=== PATIENT | female | born 1950 | race Caucasian/White ===

== ENCOUNTER → 2018-03-02 | Outpatient (CLI) | payer MEDICARE | LOC: M WUC 11:00 | DX: M25.561 Pain in right knee (principal) | CPT/HCPCS: 73564 ==

== ENCOUNTER → 2018-04-29 | Outpatient (CLI) | payer MEDICARE | LOC: M WHC 09:51 | DX: Z12.31 Encounter for screening mammogram for malignant neoplasm of breast (principal) | CPT/HCPCS: 77067 ==

== ENCOUNTER → 2019-12-11 | Outpatient (REF) | payer MEDICARE ==
[2019-12-11 13:02] LABS: HEMATOCRIT 45.3 % (36.0-47.0); HEMOGLOBIN 14.9 g/dl (12.0-15.5); MEAN CORPUSCULAR HEMOGLOBIN 32.3 pg (27.0-33.0); MEAN CORPUSCULAR HGB CONC 32.9 g/dl (32.0-36.5); MEAN CORPUSCULAR VOLUME 98.1 fl (80.0-96.0); PLATELET COUNT, AUTOMATED 146 10^3/uL (150-450); RED BLOOD COUNT 4.62 10^6/uL (4.00-5.40); WHITE BLOOD COUNT 8.1 10^3/uL (4.0-10.0)
[2019-12-11 13:35] LABS: ALBUMIN 3.6 GM/DL (3.2-5.2); ALT/SGPT 33 U/L (12-78); BILIRUBIN,TOTAL 0.9 MG/DL (0.2-1.0); BLOOD UREA NITROGEN 21 MG/DL (7-18); CALCIUM LEVEL 9.8 MG/DL (8.8-10.2); CARBON DIOXIDE LEVEL 28 MEQ/L (21-32); CHLORIDE LEVEL 103 MEQ/L (98-107); CHOLESTEROL LEVEL 192 MG/DL (<200); CREATININE FOR GFR 0.84 MG/DL (0.55-1.30); FREE T4 1.15 NG/DL (0.76-1.46); GLOMERULAR FILTRATION RATE > 60.0 (>39); GLUCOSE, FASTING 92 MG/DL (70-100); HDL CHOLESTEROL 64 MG/DL (>40); LDL CHOLESTEROL 108 MG/DL (<100); NON-HDL-C 128 MG/DL; POTASSIUM SERUM 4.3 MEQ/L (3.5-5.1); SODIUM LEVEL 138 MEQ/L (136-145); TOTAL PROTEIN 7.3 GM/DL (6.4-8.2); TRIGLYCERIDES LEVEL 102 MG/DL (<150)
[2019-12-11 14:40] LABS: HEMOGLOBIN A1c 5.6 %
== END ==
LOC: M SFHCADAM 11:16
PROVIDERS: ATTEND Family Medicine
DX: I10 Essential (primary) hypertension (principal); R73.09 Other abnormal glucose; J44.9 Chronic obstructive pulmonary disease, unspecified; E78.5 Hyperlipidemia, unspecified

== ENCOUNTER → 2020-12-13 | Outpatient (REF) | payer MEDICARE ==
[2020-12-13 13:07] LABS: ALBUMIN 3.4 GM/DL (3.2-5.2); ALT/SGPT 23 U/L (12-78); BLOOD UREA NITROGEN 18 MG/DL (7-18); CALCIUM LEVEL 8.9 MG/DL (8.8-10.2); CARBON DIOXIDE LEVEL 28 MEQ/L (21-32); CHLORIDE LEVEL 102 MEQ/L (98-107); CHOLESTEROL LEVEL 185 MG/DL (<200); CHOLESTEROL RISK RATIO 3.135 (<5); CREATININE FOR GFR 0.76 MG/DL (0.55-1.30); FREE T4 1.09 NG/DL (0.76-1.46); GLOMERULAR FILTRATION RATE > 60.0 (>39); GLUCOSE, FASTING 101 MG/DL (70-100); HDL CHOLESTEROL 59 MG/DL (>40); LDL CHOLESTEROL 104 MG/DL (<100); NON-HDL-C 126 MG/DL; POTASSIUM SERUM 4.3 MEQ/L (3.5-5.1); SODIUM LEVEL 137 MEQ/L (136-145); TRIGLYCERIDES LEVEL 112 MG/DL (<150)
[2020-12-13 13:43] LABS: HEMOGLOBIN A1c 5.1 %
== END ==
LOC: M SFHCADAM 08:36
PROVIDERS: ATTEND Family Medicine
DX: E04.9 Nontoxic goiter, unspecified (principal); I10 Essential (primary) hypertension; R73.09 Other abnormal glucose; E78.5 Hyperlipidemia, unspecified

== ENCOUNTER → 2021-09-20 | Outpatient (CLI) | payer MEDICARE | LOC: M WHC 09:18 | PROVIDERS: ATTEND Family Medicine | DX: Z12.31 Encounter for screening mammogram for malignant neoplasm of breast (principal); Z13.820 Encounter for screening for osteoporosis; M81.0 Age-related osteoporosis without current pathological fracture ==

== ENCOUNTER → 2022-12-20 | Outpatient (REF) | payer MEDICARE ==
[2022-12-20 13:34] LABS: ALBUMIN 3.1 G/DL (3.2-5.2); BILIRUBIN,TOTAL 1.5 MG/DL (0.3-1.2); CALCIUM LEVEL 9.4 MG/DL (8.3-10.6); CHOLESTEROL RISK RATIO 2.81 (<5); CREATININE FOR GFR 1.03 MG/DL (0.55-1.30); FREE T4 1.18 NG/DL (0.89-1.76); GLOMERULAR FILTRATION RATE 55.9 (>39); HDL CHOLESTEROL 63.3 MG/DL (>40); LDL CHOLESTEROL 88.3 MG/DL (<100); NON-HDL-C 114.7 MG/DL; POTASSIUM SERUM 4.2 MMOL/L (3.5-5.1); TOTAL PROTEIN 6.2 G/DL (5.7-8.2)
[2022-12-20 13:35] LABS: THYROID STIMULATING HORMONE 1.739 uIU/ML (0.55-4.78)
[2022-12-20 13:44] LABS: HEMATOCRIT 49.2 % (36.0-47.0); HEMOGLOBIN 16.3 g/dl (12.0-15.5); MEAN CORPUSCULAR HEMOGLOBIN 32.3 pg (27.0-33.0); MEAN CORPUSCULAR HGB CONC 33.1 g/dl (32.0-36.5); MEAN CORPUSCULAR VOLUME 97.6 fl (80.0-96.0); PLATELET COUNT, AUTOMATED 130 10^3/uL (150-450); RED BLOOD COUNT 5.04 10^6/uL (4.00-5.40); WHITE BLOOD COUNT 11.8 10^3/uL (4.0-10.0)
[2022-12-20 13:54] LABS: HEMOGLOBIN A1c 5.6 % (4.0-6.0)
== END ==
LOC: M SFHCADAM 10:05
PROVIDERS: ATTEND Family Medicine
DX: M85.80 Other specified disorders of bone density and structure, unspecified site (principal); R73.09 Other abnormal glucose; E78.5 Hyperlipidemia, unspecified; E04.9 Nontoxic goiter, unspecified; J44.9 Chronic obstructive pulmonary disease, unspecified

== ENCOUNTER → 2023-06-01 | Outpatient (REF) | payer MEDICARE ==
[2023-06-01 12:58] LABS: HEMATOCRIT 45.3 % (36.0-47.0); MEAN CORPUSCULAR HEMOGLOBIN 32.7 pg (27.0-33.0); MEAN CORPUSCULAR HGB CONC 33.1 g/dl (32.0-36.5); MEAN CORPUSCULAR VOLUME 98.7 fl (80.0-96.0); PLATELET COUNT, AUTOMATED 116 10^3/uL (150-450); RED BLOOD COUNT 4.59 10^6/uL (4.00-5.40)
[2023-06-01 13:33] LABS: ALBUMIN 3.4 G/DL (3.2-5.2); BILIRUBIN,TOTAL 0.9 MG/DL (0.3-1.2); CALCIUM LEVEL 10.1 MG/DL (8.3-10.6); GLOMERULAR FILTRATION RATE 57.7 (>39); POTASSIUM SERUM 4.2 MMOL/L (3.5-5.1)
== END ==
LOC: M SFHCADAM 10:50
PROVIDERS: ATTEND Family Medicine
DX: I10 Essential (primary) hypertension (principal); D72.828 Other elevated white blood cell count

== ENCOUNTER → 2023-11-28 | Outpatient (REF) | payer MEDICARE ==
[2023-11-28 18:14] LABS: BASO # 0.1 10^3/uL (0.0-0.2); BASO % 0.7 % (0.0-1.0); EOS # 0.4 10^3/uL (0.0-0.5); EOS % 5.4 % (0.0-3.0); HEMATOCRIT 44.8 % (36.0-47.0); HEMOGLOBIN 14.6 g/dl (12.0-15.5); LYMPH # 1.2 10^3/uL (1.5-5.0); LYMPH % 17.3 % (24.0-44.0); MEAN CORPUSCULAR HEMOGLOBIN 33.3 pg (27.0-33.0); MEAN CORPUSCULAR HGB CONC 32.6 g/dl (32.0-36.5); MEAN CORPUSCULAR VOLUME 102.3 fl (80.0-96.0); MONO # 1.3 10^3/uL (0.0-0.8); MONO % 19.3 % (2.0-8.0); NEUTROPHILS # 3.9 10^3/uL (1.5-8.5); NEUTROPHILS % 56.9 % (36.0-66.0); RED BLOOD COUNT 4.38 10^6/uL (4.00-5.40); WHITE BLOOD COUNT 6.8 10^3/uL (4.0-10.0)
[2023-11-28 18:16] LABS: THYROID STIMULATING HORMONE 1.696 uIU/ML (0.55-4.78)
[2023-11-28 18:17] LABS: BILIRUBIN,TOTAL 1.2 MG/DL (0.3-1.2); CALCIUM LEVEL 10.1 MG/DL (8.3-10.6); CHOLESTEROL RISK RATIO 2.94 (<5); CREATININE FOR GFR 0.98 MG/DL (0.55-1.30); GLOMERULAR FILTRATION RATE 59.1 (>39); HDL CHOLESTEROL 64.9 MG/DL (>40); LDL CHOLESTEROL 101.3 MG/DL (<100); NON-HDL-C 126.1 MG/DL; POTASSIUM SERUM 4.3 MMOL/L (3.5-5.1); TOTAL PROTEIN 6.3 G/DL (5.7-8.2)
[2023-11-28 18:19] LABS: FREE T4 1.18 NG/DL (0.89-1.76)
[2023-11-28 18:57] LABS: PLATELET COUNT, AUTOMATED 97 10^3/uL (150-450)
== END ==
LOC: M SFHCADAM 10:54
PROVIDERS: ATTEND Family Medicine
DX: I10 Essential (primary) hypertension (principal); D72.828 Other elevated white blood cell count; E04.9 Nontoxic goiter, unspecified; E78.5 Hyperlipidemia, unspecified; R73.09 Other abnormal glucose

== ENCOUNTER → 2024-12-10 | Outpatient (REF) | payer MEDICARE ==
[2024-12-10 16:57] LABS: HEMATOCRIT 39.4 % (36.0-47.0); HEMOGLOBIN 13.4 g/dl (12.0-15.5); MEAN CORPUSCULAR HEMOGLOBIN 33.9 pg (27.0-33.0); MEAN CORPUSCULAR VOLUME 99.7 fl (80.0-96.0); PLATELET COUNT, AUTOMATED 118 10^3/uL (150-450); RED BLOOD COUNT 3.95 10^6/uL (4.00-5.40)
[2024-12-10 17:00] LABS: INR 1.13; PROTHROMBIN TIME 14.8 SECONDS (12.5-14.5)
[2024-12-10 17:03] LABS: ALBUMIN 3.2 G/DL (3.2-5.2); ALKALINE PHOSPHATASE 96 U/L (35-104); ALT/SGPT 21 U/L (7.0-40); AST/SGOT 36 U/L (<34); BILIRUBIN,TOTAL 1.3 MG/DL (0.3-1.2); BLOOD UREA NITROGEN 14 MG/DL (9-23); CALCIUM LEVEL 9.8 MG/DL (8.3-10.6); CARBON DIOXIDE LEVEL 26 MMOL/L (20-31); CHLORIDE LEVEL 95 MMOL/L (98-107); CHOLESTEROL LEVEL 158 MG/DL (<200); CHOLESTEROL RISK RATIO 2.96 (<5); CREATININE FOR GFR 0.91 MG/DL (0.55-1.30); GLOMERULAR FILTRATION RATE 65.8 (>39); GLUCOSE, FASTING 98 MG/DL (74-106); HDL CHOLESTEROL 53.2 MG/DL (>40); NON-HDL-C 104.8 MG/DL; POTASSIUM SERUM 4.3 MMOL/L (3.5-5.1); SODIUM LEVEL 129 MMOL/L (136-145); TOTAL PROTEIN 6.5 G/DL (5.7-8.2); TRIGLYCERIDES LEVEL 89 MG/DL (<150)
[2024-12-10 17:04] LABS: FREE T4 1.27 NG/DL (0.89-1.76)
[2024-12-10 17:05] LABS: FERRITIN 88.6 NG/ML (7.3-270.7); THYROID STIMULATING HORMONE 2.913 uIU/ML (0.55-4.78)
[2024-12-10 17:23] LABS: HEPATITIS B SURFACE ANTIGEN NEGATIVE (NEGATIVE)
[2024-12-10 17:43] LABS: HEPATITIS C VIRUS ABY INDEX 0.34 INDEX (<0.8)
[2024-12-10 17:44] LABS: HEPATITIS B CORE ANTIBODY IGM NEGATIVE (NEGATIVE)
[2024-12-15 10:37] LABS: ALPHA 1 ANTITRYPSIN 219 mg/dL (83-199)
[2024-12-15 16:03] LABS: LIVER-KIDNEY MICROSOMAL ABY <= 20.0 U (<=20.0)
[2024-12-15 16:11] LABS: ANA PATTERN Nuclear, Speckled (NEGATIVE); ANA SCREEN, IFA POSITIVE (NEGATIVE)
== END ==
LOC: M SFHCADAM 10:54
PROVIDERS: ATTEND Family Medicine
DX: J44.1 Chronic obstructive pulmonary disease with (acute) exacerbation (principal); E04.9 Nontoxic goiter, unspecified; E78.5 Hyperlipidemia, unspecified; R73.09 Other abnormal glucose; K74.00 Hepatic fibrosis, unspecified

== ENCOUNTER 2025-03-06 14:16 | Inpatient (IN) | payer MEDICARE ==
[~2025-03-06] VITALS: Ht 167.6 cm; Wt 81.0 kg
[2025-03-06 15:00] LABS: BASO # 0.1 10^3/uL (0.0-0.2); BASO % 0.9 % (0.0-1.0); EOS # 0.4 10^3/uL (0.0-0.5); EOS % 5.9 % (0.0-3.0); LYMPH # 0.8 10^3/uL (1.5-5.0); LYMPH % 11.0 % (24.0-44.0); MONO # 0.9 10^3/uL (0.0-0.8); MONO % 13.2 % (2.0-8.0); NEUTROPHILS # 4.7 10^3/uL (1.5-8.5); NEUTROPHILS % 68.6 % (36.0-66.0); PLATELET COUNT, AUTOMATED 141 10^3/uL (150-450)
[2025-03-06 15:27] LABS: ALT/SGPT 20.0 U/L (7.0-40); AST/SGOT 36.0 U/L (<34); CALCIUM LEVEL 9.5 MG/DL (8.3-10.6); CARBON DIOXIDE LEVEL 27.0 MMOL/L (20-31); CHLORIDE LEVEL 96.0 MMOL/L (98-107); CREATININE FOR GFR 1.09 MG/DL (0.55-1.30); GLOMERULAR FILTRATION RATE 53.0 (>39); POTASSIUM SERUM 4.7 MMOL/L (3.5-5.1); SODIUM LEVEL 130.0 MMOL/L (136-145)
[2025-03-06] MEDS ORDERED: ISOVUE-370 76% 100 ML VIAL As Ordered ONE (17:43)
[2025-03-06] MEDS ORDERED: IBAN150T10 PO (18:06)
[2025-03-06] MEDS ORDERED: FLUT1BLS5 INH (18:06)
[2025-03-06] MEDS ORDERED: FLUTISP (18:12)
[2025-03-06] MEDS ORDERED: METO200T15 PO (18:12)
[2025-03-06] MEDS ORDERED: HYDR-3490 PO (18:12)
[2025-03-06] MEDS ORDERED: METF850T4 PO (18:12)
[2025-03-06] MEDS ORDERED: POTA1TAB23 PO (18:12)
[2025-03-06] MEDS ORDERED: IRBE300T25 PO (18:12)
[2025-03-06] MEDS ORDERED: ALBU8.5H INH (18:12)
[2025-03-06] MEDS ORDERED: CALC500T25 PO (18:13)
[2025-03-06] MEDS ORDERED: ECOT81TA5 PO (18:13)
[2025-03-06] MEDS ORDERED: HOME MED LIST COMPLETE! XX SCH (18:15)
[2025-03-06 18:34] LABS: APPEARANCE, URINE CLEAR (CLEAR); BACTERIA, URINE AUTO NEGATIVE (NEGATIVE); BILIRUBIN, URINE AUTO NEGATIVE (NEGATIVE); BLOOD, URINE BLOOD 1+ (NEGATIVE); GLUCOSE, URINE (UA) AUTO NEGATIVE (NEGATIVE); KETONE, URINE AUTO NEGATIVE (NEGATIVE); LEUKOCYTE ESTERASE, URINE AUTO NEGATIVE (NEGATIVE); MUCUS, URINE SMALL (NEGATIVE); NITRITE, URINE AUTO NEGATIVE (NEGATIVE); PROTEIN, URINE AUTO NEGATIVE (NEGATIVE); RBC, URINE AUTO 1 /HPF (0-3); SPECIFIC GRAVITY URINE AUTO 1.011 (1.002-1.035); SQUAMOUS EPITHELIAL CELL UR AU 2 /HPF (0-6); UROBILINOGEN, URINE AUTO 0.2 mg/dL (0.0-2.0); WBC, URINE AUTO 1 /HPF (0-3)
[2025-03-06 18:40] LABS: INR 1.22
[2025-03-06] MEDS: FUROSEMIDE 40 MG/4 ML VIAL IV ONE (18:51)
[2025-03-06] MEDS: ALBUTEROL SULFATE 2.5 MG/0.5 ML INH CONCENTRATE NEB SOLN NEB ONE (19:27)
[2025-03-06] MEDS ORDERED: DEXTROSE 50% 50 ML SYRINGE IV PRN (23:15)
[2025-03-06] MEDS ORDERED: MAALOX 30 ML SUSP *UDC PO PRN (23:15)
[2025-03-06] MEDS ORDERED: GLUCOSE 4 GM CHEW PO PRN (23:15)
[2025-03-06] MEDS ORDERED: GLUCAGON INJ 1 MG VIAL SC PRN (23:15)
[2025-03-06] MEDS ORDERED: MOM 30 ML SUSPENSION UDC PO PRN (23:15)
[2025-03-06] MEDS ORDERED: guaiFENesin SYRUP 200 MG/10 ML UDC PO PRN (23:40)
[2025-03-06] MEDS: METOPROLOL SUCC. 100 MG *XL* TAB PO SCH (23:55)
[2025-03-06] MEDS: IRBESARTAN 150 MG TAB PO SCH (23:55)
[2025-03-07 00:50] VITALS: BP 111/55; TEMP 97.3; O2SAT 93
[2025-03-07] MEDS: LEVALBUTEROL 1.25 MG 0.5ML CONCENTRATE NEB NEB SCH (01:06)
[2025-03-07 02:14] VITALS: O2SAT 95
[2025-03-07 03:23] VITALS: BP 110/55; TEMP 97.5; O2SAT 93
[2025-03-07 06:03] LABS: PLATELET COUNT, AUTOMATED 106 10^3/uL (150-450)
[2025-03-07 06:19] LABS: INR 1.37
[2025-03-07 06:37] LABS: LDH LACTATE DEHYDROGENASE 101 U/L (120-246)
[2025-03-07 07:06] LABS: ALT/SGPT 18 U/L (7.0-40); AST/SGOT 30 U/L (<34); CA 125 420.0 U/ML (<35); CA19-9 TUMOR MARKER,CARBOHYDRA < 1.2 U/ML (<35.0); CALCIUM LEVEL 8.7 MG/DL (8.3-10.6); CARBON DIOXIDE LEVEL 26 MMOL/L (20-31); CHLORIDE LEVEL 97 MMOL/L (98-107); CREATININE FOR GFR 1.04 MG/DL (0.55-1.30); GLOMERULAR FILTRATION RATE 56.1 (>39); MAGNESIUM LEVEL 1.4 MG/DL (1.8-2.4); POTASSIUM SERUM 4.0 MMOL/L (3.5-5.1); SODIUM LEVEL 130 MMOL/L (136-145)
[2025-03-07] MEDS: INSULIN LISPRO (NovoLOG) PER UNIT SC SCH (07:30)
[2025-03-07] MEDS: DOCUSATE SODIUM 100 MG CAPSULE PO SCH (08:02)
[2025-03-07] MEDS: ASPIRIN 81 MG ENTERIC TABLET PO SCH (08:03)
[2025-03-07] MEDS: SPIRONOLACTONE 50 MG TAB PO SCH (08:06)
[2025-03-07] MEDS: FUROSEMIDE 40 MG/4 ML VIAL IV SCH ×2 (08:08→17:33)
[2025-03-07] MEDS: HEPARIN SOD 5000 UNITS/ML 1 ML VIAL/SYRINGE SC SCH (08:09)
[2025-03-07] MEDS: FLUTICASONE PROPIONATE 0.05% NASAL SPRAY 16 GM SCH (08:09)
[2025-03-07 08:24] LABS: OSMOLALITY SERUM 267 MOSM/KG (280-301)
[2025-03-07] MEDS: MAG SULF 1GM/100ML (MAG RUN) 1 GM in IV 1 EA IV SCH (08:24)
[2025-03-07] MEDS: MAGNESIUM OXIDE 400 MG TAB PO SCH (08:24)
[2025-03-07] MEDS ORDERED: POTASSIUM CHLORIDE 10MEQ SR TABLET PO SCH (09:00)
[2025-03-07] MEDS: NICOTINE 21 MG/24 HR 1 EA TRANSDERMAL TD SCH (11:47)
[2025-03-07 12:29] LABS: SODIUM,RANDOM URINE 77 MMOL/L
[2025-03-07 12:32] VITALS: BP 108/45; TEMP 97; O2SAT 98
[2025-03-07 15:42] VITALS: O2SAT 96
[2025-03-07 18:56] LABS: CHOLESTEROL LEVEL 125.0 MG/DL (<200); CHOLESTEROL RISK RATIO 3.73 (<5); LDL CHOLESTEROL 75.1 MG/DL (<100); NON-HDL-C 91.5 MG/DL; TRIGLYCERIDES LEVEL 82.0 MG/DL (<150)
[2025-03-07] MEDS: ADVAIR HFA 115/21 MCG INHALER INH SCH (19:32)
[2025-03-07 19:57] VITALS: BP 109/45; TEMP 97.7; O2SAT 99
[2025-03-07] MEDS: METOPROLOL SUCC. 100 MG *XL* TAB PO SCH (20:59)
[2025-03-08] MEDS: ACETAMINOPHEN 325 MG TAB PO PRN (01:50)
[2025-03-08 05:36] VITALS: BP 113/60; TEMP 97.7; O2SAT 90
[2025-03-08 06:52] LABS: PLATELET COUNT, AUTOMATED 127 10^3/uL (150-450)
[2025-03-08 07:00] LABS: INR 1.3
[2025-03-08 07:25] LABS: ALT/SGPT 19.0 U/L (7.0-40); AST/SGOT 33.0 U/L (<34); CALCIUM LEVEL 8.9 MG/DL (8.3-10.6); CARBON DIOXIDE LEVEL 25.0 MMOL/L (20-31); CHLORIDE LEVEL 95.0 MMOL/L (98-107); CREATININE FOR GFR 1.12 MG/DL (0.55-1.30); GLOMERULAR FILTRATION RATE 51.3 (>39); MAGNESIUM LEVEL 1.7 MG/DL (1.8-2.4); POTASSIUM SERUM 4.2 MMOL/L (3.5-5.1); SODIUM LEVEL 129.0 MMOL/L (136-145)
[2025-03-08 11:45] VITALS: BP 105/50; TEMP 97.3; O2SAT 97
[2025-03-08] MEDS: FUROSEMIDE 40 MG/4 ML VIAL IV SCH (16:40)
[2025-03-08] MEDS: MAG SULF 1GM/100ML (MAG RUN) 1 GM in IV 1 EA IV SCH (18:29)
[2025-03-08 18:45] VITALS: O2SAT 99
[2025-03-08 20:27] VITALS: BP 100/49; TEMP 97.5; O2SAT 96
[2025-03-08 23:16] VITALS: BP 103/47; TEMP 97.6; O2SAT 97
[2025-03-08 23:19] VITALS: BP 100/55
[2025-03-09] VITALS (9 sets, daily range): BP systolic 92–125; BP diastolic 48–64; TEMP 97.3–97.5; O2SAT 92–97
[2025-03-09 07:13] LABS: PLATELET COUNT, AUTOMATED 108 10^3/uL (150-450)
[2025-03-09 07:33] LABS: INR 1.24
[2025-03-09 08:03] LABS: ALT/SGPT 19.0 U/L (7.0-40); AST/SGOT 38.0 U/L (<34); CALCIUM LEVEL 8.7 MG/DL (8.3-10.6); CARBON DIOXIDE LEVEL 22.0 MMOL/L (20-31); CHLORIDE LEVEL 94.0 MMOL/L (98-107); CREATININE FOR GFR 1.01 MG/DL (0.55-1.30); GLOMERULAR FILTRATION RATE 58.1 (>39); MAGNESIUM LEVEL 2.0 MG/DL (1.8-2.4); POTASSIUM SERUM 4.1 MMOL/L (3.5-5.1); SODIUM LEVEL 129.0 MMOL/L (136-145)
[2025-03-09] MEDS: MIDODRINE 5 MG TAB PO SCH (12:05)
[2025-03-09 13:04] LABS: SOURCE, BODY FLUID ASCITES
[2025-03-09 13:05] LABS: APPEARANCE, BODY FLUID CLEAR (CLEAR); ASCITES FL COLOR YELLOW (COLORLESS)
[2025-03-09 13:17] LABS: SOURCE, BODY FLUID GLUCOSE ASCITES
[2025-03-09 13:18] LABS: SOURCE, BODY FLUID TOT PROTEIN ASCITES
[2025-03-10] VITALS (12 sets, daily range): BP systolic 90–118; BP diastolic 46–58; TEMP 97.2–98.6; O2SAT 95–98
[2025-03-10 06:27] LABS: PLATELET COUNT, AUTOMATED 119 10^3/uL (150-450)
[2025-03-10 06:37] LABS: INR 1.35
[2025-03-10 06:56] LABS: ALT/SGPT 19.0 U/L (7.0-40); AST/SGOT 31.0 U/L (<34); CALCIUM LEVEL 8.4 MG/DL (8.3-10.6); CARBON DIOXIDE LEVEL 26.0 MMOL/L (20-31); CHLORIDE LEVEL 92.0 MMOL/L (98-107); CREATININE FOR GFR 0.93 MG/DL (0.55-1.30); GLOMERULAR FILTRATION RATE 64.1 (>39); MAGNESIUM LEVEL 2.2 MG/DL (1.8-2.4); POTASSIUM SERUM 4.0 MMOL/L (3.5-5.1); SODIUM LEVEL 127.0 MMOL/L (136-145)
[2025-03-11 00:20] VITALS: BP 124/54; TEMP 97.5; O2SAT 94
[2025-03-11 03:47] VITALS: BP 92/52; TEMP 97.3; O2SAT 96
[2025-03-11 06:18] LABS: BASO # 0.0 10^3/uL (0.0-0.2); BASO % 0.9 % (0.0-1.0); EOS # 0.2 10^3/uL (0.0-0.5); EOS % 5.2 % (0.0-3.0); LYMPH # 0.6 10^3/uL (1.5-5.0); LYMPH % 14.1 % (24.0-44.0); MONO # 0.6 10^3/uL (0.0-0.8); MONO % 14.6 % (2.0-8.0); NEUTROPHILS # 2.8 10^3/uL (1.5-8.5); NEUTROPHILS % 65.0 % (36.0-66.0); PLATELET COUNT, AUTOMATED 106 10^3/uL (150-450)
[2025-03-11 06:32] LABS: INR 1.31
[2025-03-11 06:56] LABS: ALT/SGPT 18.0 U/L (7.0-40); AST/SGOT 32.0 U/L (<34); CALCIUM LEVEL 8.5 MG/DL (8.3-10.6); CARBON DIOXIDE LEVEL 29.0 MMOL/L (20-31); CHLORIDE LEVEL 90.0 MMOL/L (98-107); CREATININE FOR GFR 0.94 MG/DL (0.55-1.30); GLOMERULAR FILTRATION RATE 62.9 (>39); POTASSIUM SERUM 3.8 MMOL/L (3.5-5.1); SODIUM LEVEL 128.0 MMOL/L (136-145)
[2025-03-11] MEDS ORDERED: FUROSEMIDE 100 MG/10 ML VIAL IV SCH (09:10)
[2025-03-11] MEDS ORDERED: SPIRONOLACTONE 50 MG TAB PO SCH (09:10)
[2025-03-11 12:00] VITALS: BP 121/56; TEMP 97.3; O2SAT 96
[2025-03-11] MEDS: FUROSEMIDE 100 MG/10 ML VIAL IV ONE (13:49)
[2025-03-11] MEDS: SPIRONOLACTONE 50 MG TAB PO ONE (13:53)
[2025-03-11] MEDS: FUROSEMIDE 100 MG/10 ML VIAL IV SCH (17:43)
[2025-03-11 19:47] VITALS: BP 127/95; TEMP 97.5; O2SAT 94
[2025-03-11] MEDS: LORATADINE 10 MG TAB PO SCH (21:03)
[2025-03-12] VITALS (7 sets, daily range): BP systolic 90–113; BP diastolic 42–64; TEMP 97.2–97.8; O2SAT 95–100
[2025-03-12] MEDS: NS 500 ML IV ONE (01:28)
[2025-03-12] MEDS: METOPROLOL TART 25 MG TABLET PO ONE (01:38)
[2025-03-12 02:09] LABS: BASO # 0.1 10^3/uL (0.0-0.2); BASO % 1.1 % (0.0-1.0); EOS # 0.2 10^3/uL (0.0-0.5); EOS % 3.9 % (0.0-3.0); LYMPH # 0.6 10^3/uL (1.5-5.0); LYMPH % 13.9 % (24.0-44.0); MONO # 0.8 10^3/uL (0.0-0.8); MONO % 17.1 % (2.0-8.0); NEUTROPHILS # 2.9 10^3/uL (1.5-8.5); NEUTROPHILS % 63.6 % (36.0-66.0); PLATELET COUNT, AUTOMATED 101 10^3/uL (150-450)
[2025-03-12 02:21] LABS: INR 1.3
[2025-03-12 02:31] LABS: CPK CREATINE PHOSPHOKINASE 46 U/L (34-145)
[2025-03-12 02:32] LABS: ALT/SGPT 18 U/L (7.0-40); AST/SGOT 35 U/L (<34); CALCIUM LEVEL 8.0 MG/DL (8.3-10.6); CARBON DIOXIDE LEVEL 27 MMOL/L (20-31); CHLORIDE LEVEL 93 MMOL/L (98-107); CK-MB VALUE MASS < 1.0 NG/ML (<3.6); CREATININE FOR GFR 0.95 MG/DL (0.55-1.30); GLOMERULAR FILTRATION RATE 62.1 (>39); MAGNESIUM LEVEL 2.1 MG/DL (1.8-2.4); POTASSIUM SERUM 3.7 MMOL/L (3.5-5.1); SODIUM LEVEL 131 MMOL/L (136-145)
[2025-03-12] MEDS: METOPROLOL TART 25 MG TABLET PO SCH (05:18)
[2025-03-12 06:20] LABS: PLATELET COUNT, AUTOMATED 121 10^3/uL (150-450)
[2025-03-12 06:33] LABS: INR 1.35
[2025-03-12 06:41] LABS: CALCIUM LEVEL 7.9 MG/DL (8.3-10.6); CARBON DIOXIDE LEVEL 29.0 MMOL/L (20-31); CHLORIDE LEVEL 95.0 MMOL/L (98-107); CREATININE FOR GFR 0.97 MG/DL (0.55-1.30); GLOMERULAR FILTRATION RATE 60.6 (>39); PHOSPHORUS LEVEL 2.4 MG/DL (2.4-5.1); POTASSIUM SERUM 4.1 MMOL/L (3.5-5.1); SODIUM LEVEL 131.0 MMOL/L (136-145)
[2025-03-12] MEDS: MIDODRINE 5 MG TAB PO SCH (08:17)
[2025-03-12] MEDS: SPIRONOLACTONE 50 MG TAB PO SCH (08:18)
[2025-03-12] MEDS: APIXABAN 5 MG TAB PO SCH (11:08)
[2025-03-12] MEDS: SPIRONOLACTONE 25 MG TAB PO SCH (17:00)
[2025-03-13 04:15] VITALS: BP 101/67; TEMP 97.9; O2SAT 94
[2025-03-13 06:27] LABS: INR 1.61
[2025-03-13 08:13] LABS: BASO # 0.1 10^3/uL (0.0-0.2); BASO % 1.1 % (0.0-1.0); EOS # 0.3 10^3/uL (0.0-0.5); EOS % 6.3 % (0.0-3.0); LYMPH # 0.9 10^3/uL (1.5-5.0); LYMPH % 16.5 % (24.0-44.0); MONO # 0.8 10^3/uL (0.0-0.8); MONO % 15.2 % (2.0-8.0); NEUTROPHILS # 3.3 10^3/uL (1.5-8.5); NEUTROPHILS % 60.5 % (36.0-66.0); PLATELET COUNT, AUTOMATED 138 10^3/uL (150-450)
[2025-03-13 08:42] LABS: CALCIUM LEVEL 8.2 MG/DL (8.3-10.6); CARBON DIOXIDE LEVEL 28.0 MMOL/L (20-31); CHLORIDE LEVEL 96.0 MMOL/L (98-107); CREATININE FOR GFR 0.99 MG/DL (0.55-1.30); GLOMERULAR FILTRATION RATE 59.1 (>39); POTASSIUM SERUM 4.0 MMOL/L (3.5-5.1); SODIUM LEVEL 133.0 MMOL/L (136-145)
[2025-03-13] MEDS: METOPROLOL TART 25 MG TABLET PO ONE (09:15)
[2025-03-13] MEDS: DIGOXIN INJ 0.5 MG/2 ML AMP IV STA (09:16)
[2025-03-13 12:00] VITALS: BP 110/63; TEMP 97.3; O2SAT 98
[2025-03-13] MEDS: DIGOXIN INJ 0.5 MG/2 ML AMP IV ONE (15:34)
[2025-03-13 20:00] VITALS: BP 125/41; TEMP 97.5; O2SAT 96
[2025-03-13] MEDS: METOPROLOL TART 50 MG TAB PO SCH (21:21)
[2025-03-14 03:46] VITALS: BP 117/47; TEMP 97.3; O2SAT 96
[2025-03-14 08:30] LABS: BASO # 0.1 10^3/uL (0.0-0.2); BASO % 1.1 % (0.0-1.0); EOS # 0.3 10^3/uL (0.0-0.5); EOS % 6.3 % (0.0-3.0); LYMPH # 0.8 10^3/uL (1.5-5.0); LYMPH % 17.3 % (24.0-44.0); MONO # 0.6 10^3/uL (0.0-0.8); MONO % 13.3 % (2.0-8.0); NEUTROPHILS # 2.8 10^3/uL (1.5-8.5); NEUTROPHILS % 61.6 % (36.0-66.0); PLATELET COUNT, AUTOMATED 120 10^3/uL (150-450)
[2025-03-14 08:53] LABS: CALCIUM LEVEL 8.1 MG/DL (8.3-10.6); CARBON DIOXIDE LEVEL 28 MMOL/L (20-31); CHLORIDE LEVEL 91 MMOL/L (98-107); CREATININE FOR GFR 1.05 MG/DL (0.55-1.30); GLOMERULAR FILTRATION RATE 55.1 (>39); MAGNESIUM LEVEL 2.6 MG/DL (1.8-2.4); POTASSIUM SERUM 4.5 MMOL/L (3.5-5.1); SODIUM LEVEL 129 MMOL/L (136-145)
[2025-03-14] MEDS: FUROSEMIDE 40 MG/4 ML VIAL IV SCH (09:00)
[2025-03-14 11:46] LABS: HEPATITIS C VIRUS ABY INDEX 0.02 INDEX (<0.8)
[2025-03-14 11:50] VITALS: BP 114/49; TEMP 97.3; O2SAT 97
[2025-03-14] MEDS: FUROSEMIDE 20 MG/2 ML VIAL IV ONE (14:59)
[2025-03-14] MEDS: ALBUTEROL 90 MCG/ACT 8 GM HFA INHALER INH PRN (20:34)
[2025-03-14 20:35] VITALS: BP 117/50; TEMP 97.3; O2SAT 95
[2025-03-15 03:30] VITALS: BP 112/47; TEMP 97.5; O2SAT 94
[2025-03-15 07:00] LABS: CALCIUM LEVEL 8.1 MG/DL (8.3-10.6); CARBON DIOXIDE LEVEL 28.0 MMOL/L (20-31); CHLORIDE LEVEL 93.0 MMOL/L (98-107); CREATININE FOR GFR 1.11 MG/DL (0.55-1.30); GLOMERULAR FILTRATION RATE 51.5 (>39); POTASSIUM SERUM 4.0 MMOL/L (3.5-5.1); SODIUM LEVEL 132.0 MMOL/L (136-145)
[2025-03-15 12:00] VITALS: BP 108/53; TEMP 97.5; O2SAT 97
[2025-03-15 17:25] VITALS: BP 104/50; O2SAT 96
[2025-03-15 19:48] VITALS: BP 107/49; TEMP 97.5; O2SAT 92
[2025-03-16 04:01] VITALS: BP 116/47; TEMP 97.3; O2SAT 93
[2025-03-16 08:01] LABS: BASO # 0.0 10^3/uL (0.0-0.2); BASO % 0.7 % (0.0-1.0); EOS # 0.2 10^3/uL (0.0-0.5); EOS % 4.9 % (0.0-3.0); LYMPH # 0.7 10^3/uL (1.5-5.0); LYMPH % 16.9 % (24.0-44.0); MONO # 0.6 10^3/uL (0.0-0.8); MONO % 13.7 % (2.0-8.0); NEUTROPHILS # 2.7 10^3/uL (1.5-8.5); NEUTROPHILS % 63.1 % (36.0-66.0); PLATELET COUNT, AUTOMATED 108 10^3/uL (150-450)
[2025-03-16 08:30] LABS: CALCIUM LEVEL 8.1 MG/DL (8.3-10.6); CARBON DIOXIDE LEVEL 30.0 MMOL/L (20-31); CHLORIDE LEVEL 91.0 MMOL/L (98-107); CREATININE FOR GFR 1.13 MG/DL (0.55-1.30); GLOMERULAR FILTRATION RATE 50.4 (>39); POTASSIUM SERUM 3.6 MMOL/L (3.5-5.1); SODIUM LEVEL 132.0 MMOL/L (136-145)
[2025-03-16 09:23] LABS: ESTIMATED AVERAGE GLUCOSE 97.0 MG/DL (60-110)
[2025-03-16 12:00] VITALS: BP 126/49; TEMP 97.2; O2SAT 96
[2025-03-16] MEDS: SPIRONOLACTONE 50 MG TAB PO SCH (16:36)
[2025-03-16] MEDS: FUROSEMIDE 40 MG TAB PO SCH (16:37)
[2025-03-16 20:00] VITALS: BP 111/49; TEMP 97.5; O2SAT 96
[2025-03-17 03:26] VITALS: BP 112/48; TEMP 97.3; O2SAT 93
[2025-03-17 06:32] LABS: BASO # 0.1 10^3/uL (0.0-0.2); BASO % 1.2 % (0.0-1.0); EOS # 0.3 10^3/uL (0.0-0.5); EOS % 7.0 % (0.0-3.0); LYMPH # 0.7 10^3/uL (1.5-5.0); LYMPH % 16.4 % (24.0-44.0); MONO # 0.7 10^3/uL (0.0-0.8); MONO % 15.7 % (2.0-8.0); NEUTROPHILS # 2.5 10^3/uL (1.5-8.5); NEUTROPHILS % 59.0 % (36.0-66.0); PLATELET COUNT, AUTOMATED 108 10^3/uL (150-450)
[2025-03-17 07:07] LABS: CALCIUM LEVEL 9.2 MG/DL (8.3-10.6); CARBON DIOXIDE LEVEL 29.0 MMOL/L (20-31); CHLORIDE LEVEL 94.0 MMOL/L (98-107); CREATININE FOR GFR 1.08 MG/DL (0.55-1.30); GLOMERULAR FILTRATION RATE 53.2 (>39); MAGNESIUM LEVEL 1.9 MG/DL (1.8-2.4); POTASSIUM SERUM 4.1 MMOL/L (3.5-5.1); SODIUM LEVEL 133.0 MMOL/L (136-145)
[2025-03-17] MEDS ORDERED: ELIQ5TAB PO (11:52)
[2025-03-17] MEDS ORDERED: MIDO5TA PO (11:52)
[2025-03-17] MEDS ORDERED: NICO21PAT TD (11:52)
[2025-03-17] MEDS ORDERED: FURO40TA2 PO (11:52)
[2025-03-17] MEDS ORDERED: ALDA50TA2 PO (11:52)
[2025-03-17] MEDS ORDERED: LOPR1TAB6 PO (11:52)
[2025-03-17] MEDS ORDERED: MAGN400T33 PO (11:52)
[2025-03-17 12:00] VITALS: BP 117/53; TEMP 97.5; O2SAT 95
[2025-03-17 12:03] VITALS: BP 117/53
[2025-03-17] MEDS ORDERED: XARE20TA PO (12:52)
[2025-03-17] MEDS ORDERED: PRAD150C6 PO (13:11)
== END 2025-03-17 14:35 | disposition home health service (06) | DRG 433 ==
LOC: M ED 14:16 → M ED INP 14:17 → M MSPAV 03-07 00:47 → OBSVTOIN 03-07 08:16
PROVIDERS: ADMIT Student in an Organized Health Care Education/Training Program; ATTEND Internal Medicine
PROC: 0W9G3ZX Drainage of Peritoneal Cavity, Percutaneous Approach, Diagnostic (ICD-10-PCS; 2025-03-09)
PROC: 30233J1 Transfusion of Nonautologous Serum Albumin into Peripheral Vein, Percutaneous Approach (ICD-10-PCS; 2025-03-09)
PROC: B246ZZZ Ultrasonography of Right and Left Heart (ICD-10-PCS; principal; 2025-03-09 12:00)
DX: K74.60 Unspecified cirrhosis of liver (principal); R18.8 Other ascites; E87.1 Hypo-osmolality and hyponatremia; I48.92 Unspecified atrial flutter; J45.20 Mild intermittent asthma, uncomplicated; I12.9 Hypertensive chronic kidney disease with stage 1 through stage 4 chronic kidney disease, or unspecified chronic kidney disease; J44.9 Chronic obstructive pulmonary disease, unspecified; F17.210 Nicotine dependence, cigarettes, uncomplicated; R73.03 Prediabetes; R91.1 Solitary pulmonary nodule; M17.11 Unilateral primary osteoarthritis, right knee; K74.00 Hepatic fibrosis, unspecified; E83.42 Hypomagnesemia; M85.80 Other specified disorders of bone density and structure, unspecified site; E88.09 Other disorders of plasma-protein metabolism, not elsewhere classified; I95.9 Hypotension, unspecified; D63.8 Anemia in other chronic diseases classified elsewhere; R97.1 Elevated cancer antigen 125 [CA 125]; I48.91 Unspecified atrial fibrillation; E87.70 Fluid overload, unspecified; N18.9 Chronic kidney disease, unspecified; D69.6 Thrombocytopenia, unspecified; R59.0 Localized enlarged lymph nodes; E04.9 Nontoxic goiter, unspecified; Z79.82 Long term (current) use of aspirin; Z79.84 Long term (current) use of oral hypoglycemic drugs; Z79.899 Other long term (current) drug therapy; Z88.2 Allergy status to sulfonamides; Z88.6 Allergy status to analgesic agent; Z88.8 Allergy status to other drugs, medicaments and biological substances; Z91.048 Other nonmedicinal substance allergy status; Z90.49 Acquired absence of other specified parts of digestive tract

== ENCOUNTER → 2025-03-17 | Outpatient (CLI) | payer MEDICARE ==
[~2025-03-17] MED LIST: ALBU8.5H INH; ALDA50TA2 PO; CALC500T25 PO; CARA1TAB6 PO; CLAR10CA3 PO; DOXY100T PO; ECOT81TA5 PO; ELIQ5TAB PO; FLUT1BLS5 INH; FLUTISP; FURO40TA2 PO; HYDR-3490 PO; IBAN150T10 PO; IRBE300T25 PO; LOPR1TAB6 PO; MAGN400T2 PO; MAGN400T33 PO; METF850T4 PO; METO200T15 PO; MIDO5TA PO; NICO1DIS12 TD; NICO21PAT TD; PANT40TA29 PO; POTA1TAB23 PO; PRAD150C6 PO; SPIR50TA4 PO; XARE20TA PO
== END ==
LOC: M EKG 15:02
PROVIDERS: ATTEND Internal Medicine
DX: I48.0 Paroxysmal atrial fibrillation (principal)

== ENCOUNTER 2025-03-19 06:51 | Inpatient (IN) | payer MEDICARE ==
[~2025-03-19] VITALS: Ht 167.6 cm; Wt 74.8 kg
[~2025-03-19 06:51] MED LIST changes: -CARA1TAB6 PO; -CLAR10CA3 PO; -DOXY100T PO; -MAGN400T2 PO; -NICO1DIS12 TD; -PANT40TA29 PO; -SPIR50TA4 PO
[2025-03-19 07:50] LABS: BASO # 0.1 10^3/uL (0.0-0.2); BASO % 1.0 % (0.0-1.0); EOS # 0.2 10^3/uL (0.0-0.5); EOS % 3.5 % (0.0-3.0); LYMPH # 0.6 10^3/uL (1.5-5.0); LYMPH % 12.3 % (24.0-44.0); MONO # 0.7 10^3/uL (0.0-0.8); MONO % 13.8 % (2.0-8.0); NEUTROPHILS # 3.6 10^3/uL (1.5-8.5); NEUTROPHILS % 69.2 % (36.0-66.0); PLATELET COUNT, AUTOMATED 117 10^3/uL (150-450)
[2025-03-19 08:02] LABS: INR 2.12
[2025-03-19 08:34] LABS: CALCIUM LEVEL 10.0 MG/DL (8.3-10.6); CARBON DIOXIDE LEVEL 26.0 MMOL/L (20-31); CHLORIDE LEVEL 94.0 MMOL/L (98-107); CREATININE FOR GFR 1.11 MG/DL (0.55-1.30); GLOMERULAR FILTRATION RATE 51.5 (>39); POTASSIUM SERUM 4.6 MMOL/L (3.5-5.1); SODIUM LEVEL 134.0 MMOL/L (136-145)
[2025-03-19] MEDS ORDERED: GLUCOSE 4 GM CHEW PO PRN (10:20)
[2025-03-19] MEDS ORDERED: DEXTROSE 50% 50 ML SYRINGE IV PRN (10:20)
[2025-03-19] MEDS ORDERED: GLUCAGON INJ 1 MG VIAL SC PRN (10:20)
[2025-03-19] MEDS: IDARUCIZUMAB IV SCH (10:35)
[2025-03-19 10:41] LABS: ALT/SGPT 19.0 U/L (7.0-40); AST/SGOT 48.0 U/L (<34)
[2025-03-19] MEDS ORDERED: CLAR10CA3 PO (11:01)
[2025-03-19] MEDS ORDERED: PRAD150C6 PO (11:01)
[2025-03-19] MEDS ORDERED: FURO40TA2 PO (11:01)
[2025-03-19] MEDS ORDERED: LOPR1TAB6 PO (11:01)
[2025-03-19] MEDS ORDERED: MAGN400T2 PO (11:01)
[2025-03-19] MEDS ORDERED: SPIR50TA4 PO (11:01)
[2025-03-19] MEDS ORDERED: MIDO5TA PO (11:01)
[2025-03-19] MEDS ORDERED: NICO1DIS12 TD (11:01)
[2025-03-19] MEDS ORDERED: HOME MED LIST COMPLETE! XX SCH (11:05)
[2025-03-19] MEDS: PANTOPRAZOLE 40MG VIAL IV ONE (11:40)
[2025-03-19] MEDS: PANTOPRAZOLE SODIUM 40 MG in D5W 50 ML IV SCH (11:41)
[2025-03-19] MEDS: OCTREOTIDE ACETATE 1,200 MCG in NS 238.8 ML IV SCH (11:46)
[2025-03-19] MEDS: OCTREOTIDE ACETATE 100 MCG/ML VIAL **IV ADMINISTRATION ONLY IV ONE (11:46)
[2025-03-19 13:48] LABS: ESTIMATED AVERAGE GLUCOSE 91.0 MG/DL (60-110)
[2025-03-19 18:49] VITALS: BP 133/63; TEMP 98; O2SAT 99
[2025-03-19 19:57] VITALS: BP 121/58; TEMP 98; O2SAT 98
[2025-03-19] MEDS: MAGNESIUM OXIDE 400 MG TAB PO SCH (21:10)
[2025-03-19] MEDS: FUROSEMIDE 40 MG TAB PO SCH (21:11)
[2025-03-19] MEDS: SPIRONOLACTONE 50 MG TAB PO SCH (21:11)
[2025-03-19] MEDS: METOPROLOL TART 50 MG TAB PO SCH (21:11)
[2025-03-19] MEDS: ALBUTEROL 90 MCG/ACT 8 GM HFA INHALER INH PRN (22:55)
[2025-03-19 23:31] VITALS: BP 116/56; TEMP 98.3; O2SAT 99
[2025-03-20] VITALS (7 sets, daily range): BP systolic 104–122; BP diastolic 52–58; TEMP 97.2–98.2; O2SAT 93–97
[2025-03-20] MEDS: ACETAMINOPHEN 500 MG TAB PO ONE (00:38)
[2025-03-20 04:18] LABS: PLATELET COUNT, AUTOMATED 80 10^3/uL (150-450)
[2025-03-20 04:40] LABS: ALT/SGPT 20.0 U/L (7.0-40); AST/SGOT 47.0 U/L (<34); CALCIUM LEVEL 9.3 MG/DL (8.3-10.6); CARBON DIOXIDE LEVEL 25.0 MMOL/L (20-31); CHLORIDE LEVEL 95.0 MMOL/L (98-107); CREATININE FOR GFR 1.25 MG/DL (0.55-1.30); GLOMERULAR FILTRATION RATE 44.7 (>39); MAGNESIUM LEVEL 1.9 MG/DL (1.8-2.4); POTASSIUM SERUM 5.2 MMOL/L (3.5-5.1); SODIUM LEVEL 131.0 MMOL/L (136-145)
[2025-03-20] MEDS: PATIROMER SORBITEX CALCIUM 8.4GM POWDER PACKET PO ONE (07:26)
[2025-03-20] MEDS: CALCIUM GLUCONATE 1,000 MG in DEXTROSE 5% (D5W) MINI-BAG PLU 100 ML IV ONE (07:26)
[2025-03-20] MEDS: LORATADINE 10 MG TAB PO SCH (08:14)
[2025-03-20] MEDS: MIDODRINE 5 MG TAB PO SCH (08:14)
[2025-03-20] MEDS: NICOTINE 21 MG/24 HR 1 EA TRANSDERMAL TD SCH (08:25)
[2025-03-20] MEDS: ADVAIR HFA 115/21 MCG INHALER INH SCH (08:38)
[2025-03-20] MEDS: FLUTICASONE PROPIONATE 0.05% NASAL SPRAY 16 GM SCH (12:44)
[2025-03-20] MEDS: PHYTONADIONE 5 MG TAB PO ONE (15:07)
[2025-03-21 03:42] VITALS: BP 131/60; TEMP 98.5; O2SAT 94
[2025-03-21 04:28] LABS: PLATELET COUNT, AUTOMATED 103 10^3/uL (150-450)
[2025-03-21 05:11] LABS: ALT/SGPT 22.0 U/L (7.0-40); AST/SGOT 46.0 U/L (<34); CALCIUM LEVEL 9.3 MG/DL (8.3-10.6); CARBON DIOXIDE LEVEL 28.0 MMOL/L (20-31); CHLORIDE LEVEL 97.0 MMOL/L (98-107); CREATININE FOR GFR 1.31 MG/DL (0.55-1.30); GLOMERULAR FILTRATION RATE 42.2 (>39); MAGNESIUM LEVEL 1.7 MG/DL (1.8-2.4); POTASSIUM SERUM 4.5 MMOL/L (3.5-5.1); SODIUM LEVEL 134.0 MMOL/L (136-145)
[2025-03-21 07:54] VITALS: BP 101/54; TEMP 98.1; O2SAT 97
[2025-03-21 12:25] VITALS: BP 115/54; O2SAT 98
[2025-03-21 16:19] VITALS: BP 109/55; TEMP 97.1; O2SAT 95
[2025-03-21 19:49] VITALS: BP 119/56; TEMP 98; O2SAT 93
[2025-03-21] MEDS: PANTOPRAZOLE 40MG TAB PO SCH (20:10)
[2025-03-21] MEDS: MUPIROCIN 2% OINT 22 GM TUBE TOP SCH (20:13)
[2025-03-21] MEDS ORDERED: NYSTATIN CREAM 15 GM TOP SCH (21:00)
[2025-03-22 03:37] VITALS: BP 103/59; TEMP 99.3; O2SAT 90
[2025-03-22 04:25] LABS: PLATELET COUNT, AUTOMATED 129 10^3/uL (150-450)
[2025-03-22] MEDS ORDERED: SODIUM CHLORIDE NASAL 0.65% SPRAY BTL (OCEAN) PRN ×2 (04:50→09:25)
[2025-03-22] MEDS: ONDANSETRON 4MG 2ML VIAL IV ONE (05:00)
[2025-03-22 05:06] LABS: ALT/SGPT 21.0 U/L (7.0-40); AST/SGOT 40.0 U/L (<34); CALCIUM LEVEL 8.9 MG/DL (8.3-10.6); CARBON DIOXIDE LEVEL 26.0 MMOL/L (20-31); CHLORIDE LEVEL 99.0 MMOL/L (98-107); CREATININE FOR GFR 1.29 MG/DL (0.55-1.30); GLOMERULAR FILTRATION RATE 43.0 (>39); MAGNESIUM LEVEL 1.8 MG/DL (1.8-2.4); POTASSIUM SERUM 4.5 MMOL/L (3.5-5.1); SODIUM LEVEL 134.0 MMOL/L (136-145)
[2025-03-22] MEDS: METOPROLOL TART 25 MG TABLET PO SCH (06:00)
[2025-03-22 07:41] VITALS: BP 111/52; TEMP 97; O2SAT 96
[2025-03-22] MEDS: SODIUM CHLORIDE NASAL 0.65% SPRAY BTL (OCEAN) SCH (09:00)
[2025-03-22] MEDS ORDERED: SENNOSIDES/DOCUSATE SODIUM 8.6 MG/50MG TAB PO PRN (09:25)
[2025-03-22] MEDS: LACTULOSE 20 GM/30 ML SYRUP UDC PO ONE (09:39)
[2025-03-22] MEDS: SENNOSIDES/DOCUSATE SODIUM 8.6 MG/50MG TAB PO ONE (09:40)
[2025-03-22 12:00] VITALS: BP 118/61
[2025-03-22 16:00] VITALS: BP 114/53; TEMP 97.4; O2SAT 97
[2025-03-22 19:55] VITALS: BP 114/56; TEMP 97.6; O2SAT 95
[2025-03-22] MEDS: LACTULOSE 20 GM/30 ML SYRUP UDC PO PRN (20:27)
[2025-03-23 04:19] VITALS: BP 120/68; TEMP 97.8; O2SAT 94
[2025-03-23 05:09] LABS: PLATELET COUNT, AUTOMATED 111 10^3/uL (150-450)
[2025-03-23 05:32] LABS: ALT/SGPT 19.0 U/L (7.0-40); AST/SGOT 33.0 U/L (<34); CALCIUM LEVEL 8.4 MG/DL (8.3-10.6); CARBON DIOXIDE LEVEL 26.0 MMOL/L (20-31); CHLORIDE LEVEL 99.0 MMOL/L (98-107); CREATININE FOR GFR 1.19 MG/DL (0.55-1.30); GLOMERULAR FILTRATION RATE 47.4 (>39); MAGNESIUM LEVEL 1.9 MG/DL (1.8-2.4); POTASSIUM SERUM 4.2 MMOL/L (3.5-5.1); SODIUM LEVEL 135.0 MMOL/L (136-145)
[2025-03-23 07:46] VITALS: BP 111/58; TEMP 97.4; O2SAT 96
[2025-03-23] MEDS: DOXYCYCLINE HYCLATE 100 MG TABLET PO SCH (09:13)
[2025-03-23] MEDS ORDERED: PANT40TA29 PO (11:19)
[2025-03-23] MEDS ORDERED: DOXY100T PO (11:19)
[2025-03-23] MEDS ORDERED: CARA1TAB6 PO (11:19)
[2025-03-23 12:45] VITALS: BP 122/60
[2025-03-23 12:58] VITALS: BP 122/60
== END 2025-03-23 16:50 | disposition home health service (06) | DRG 813 ==
LOC: M ED 06:51 → UNDOADMIN 09:31 → M ED INP 09:31 → M PCU 18:41
PROVIDERS: ADMIT General Practice; ATTEND General Practice
DX: D68.32 Hemorrhagic disorder due to extrinsic circulating anticoagulants (principal); D62 Acute posthemorrhagic anemia; K76.6 Portal hypertension; E87.1 Hypo-osmolality and hyponatremia; K62.5 Hemorrhage of anus and rectum; D61.818 Other pancytopenia; L03.311 Cellulitis of abdominal wall; K74.60 Unspecified cirrhosis of liver; D69.59 Other secondary thrombocytopenia; E88.09 Other disorders of plasma-protein metabolism, not elsewhere classified; J44.9 Chronic obstructive pulmonary disease, unspecified; R91.1 Solitary pulmonary nodule; I10 Essential (primary) hypertension; R73.03 Prediabetes; I48.91 Unspecified atrial fibrillation; M17.11 Unilateral primary osteoarthritis, right knee; J45.909 Unspecified asthma, uncomplicated; R04.0 Epistaxis; E04.0 Nontoxic diffuse goiter; A63.0 Anogenital (venereal) warts; R26.89 Other abnormalities of gait and mobility; M85.80 Other specified disorders of bone density and structure, unspecified site; I95.89 Other hypotension; R53.1 Weakness; K76.0 Fatty (change of) liver, not elsewhere classified; B95.8 Unspecified staphylococcus as the cause of diseases classified elsewhere; K74.00 Hepatic fibrosis, unspecified; J43.9 Emphysema, unspecified; Z88.2 Allergy status to sulfonamides; Z88.6 Allergy status to analgesic agent; Z88.8 Allergy status to other drugs, medicaments and biological substances; Z91.048 Other nonmedicinal substance allergy status; Z79.84 Long term (current) use of oral hypoglycemic drugs; Z79.899 Other long term (current) drug therapy

== ENCOUNTER → 2025-04-21 | Outpatient (CLI) | payer MEDICARE ==
[~2025-04-21] MED LIST changes: +ACETAMINOPHEN 325 MG TAB PO PRN; +CARA1TAB6 PO; +CLAR10CA3 PO; +DOXY100T PO; +LIDOCAINE 1% MDV 20 ML VIAL IM ONE; +MAGN400T2 PO; +NICO1DIS12 TD; +PANT40TA29 PO; +SPIR50TA4 PO
[2025-04-21 14:28] VITALS: TEMP 98.1
[2025-04-21 15:53] VITALS: BP 114/63; O2SAT 94
== END ==
LOC: M IRPRO 14:15
PROVIDERS: ATTEND Internal Medicine Critical Care Medicine
DX: R18.8 Other ascites (principal)

== ENCOUNTER → 2025-04-23 | Outpatient (REF) | payer MEDICARE ==
[~2025-04-23] MED LIST changes: -ACETAMINOPHEN 325 MG TAB PO PRN; -LIDOCAINE 1% MDV 20 ML VIAL IM ONE
[2025-04-23 12:13] LABS: PLATELET COUNT, AUTOMATED 123 10^3/uL (150-450)
[2025-04-23 12:49] LABS: ALT/SGPT 43.0 U/L (7.0-40); AST/SGOT 75.0 U/L (<34); CALCIUM LEVEL 9.1 MG/DL (8.3-10.6); CARBON DIOXIDE LEVEL 25.0 MMOL/L (20-31); CHLORIDE LEVEL 94.0 MMOL/L (98-107); CREATININE FOR GFR 1.46 MG/DL (0.55-1.30); GLOMERULAR FILTRATION RATE 37.1 (>39); POTASSIUM SERUM 3.8 MMOL/L (3.5-5.1); SODIUM LEVEL 128.0 MMOL/L (136-145)
== END ==
LOC: M LAB REF 12:05
PROVIDERS: ATTEND Family Medicine
DX: K74.60 Unspecified cirrhosis of liver (principal)

== ENCOUNTER → 2025-04-24 | Outpatient (CLI) | payer MEDICARE | LOC: M RAD 08:27 | PROVIDERS: ATTEND Internal Medicine Critical Care Medicine | DX: J44.9 Chronic obstructive pulmonary disease, unspecified (principal) ==

== ENCOUNTER → 2025-04-24 | Outpatient (REF) | payer MEDICARE ==
[2025-04-24 13:26] LABS: INR 1.31
== END ==
LOC: M LAB REF 13:09
PROVIDERS: ATTEND Family Medicine
DX: K74.60 Unspecified cirrhosis of liver (principal)

== ENCOUNTER 2025-04-27 14:18 | Emergency (ER) | payer MEDICARE ==
[~2025-04-27] VITALS: Ht 167.6 cm; Wt 71.3 kg
[2025-04-27] MEDS: TETANUS/DIPHTH/ACEL. PERTUSSIS 0.5 ML SYR IM.IMMUN ONE (19:06)
[2025-04-27 20:16] VITALS: BP 124/62; TEMP 97.2; O2SAT 98
== END 2025-04-27 20:18 | disposition home or self-care (01) ==
LOC: M ED 14:18
DX: S51.011A Laceration without foreign body of right elbow, initial encounter (principal); Y92.019 Unspecified place in single-family (private) house as the place of occurrence of the external cause; Y93.9 Activity, unspecified; Y99.9 Unspecified external cause status; W01.0XXA Fall on same level from slipping, tripping and stumbling without subsequent striking against object, initial encounter; I10 Essential (primary) hypertension; J45.909 Unspecified asthma, uncomplicated; Z23 Encounter for immunization; Z87.891 Personal history of nicotine dependence; Z88.2 Allergy status to sulfonamides; Z88.6 Allergy status to analgesic agent; Z88.8 Allergy status to other drugs, medicaments and biological substances; Z79.51 Long term (current) use of inhaled steroids; Z79.2 Long term (current) use of antibiotics; Z79.84 Long term (current) use of oral hypoglycemic drugs; Z79.899 Other long term (current) drug therapy

== ENCOUNTER 2025-05-04 08:23 | Inpatient (IN) | payer MEDICARE ==
[~2025-05-04] VITALS: Ht 167.6 cm; Wt 76.2 kg
[~2025-05-04 08:23] MED LIST changes: +IPRA0.00 INH; -NICO1DIS12 TD; +NICO1DIS12 TOP; +SUCR1TAB56 PO
[2025-05-04] MEDS: LIDOCAINE 2% 5 ML JELLY UROJET TOP ONE (09:25)
[2025-05-04 10:25] LABS: BASO # 0.0 10^3/uL (0.0-0.2); BASO % 0.2 % (0.0-1.0); EOS # 0.0 10^3/uL (0.0-0.5); EOS % 0.2 % (0.0-3.0); LYMPH # 0.8 10^3/uL (1.5-5.0); LYMPH % 5.5 % (24.0-44.0); MONO # 1.1 10^3/uL (0.0-0.8); MONO % 7.2 % (2.0-8.0); NEUTROPHILS # 13.0 10^3/uL (1.5-8.5); NEUTROPHILS % 85.6 % (36.0-66.0); PLATELET COUNT, AUTOMATED 142 10^3/uL (150-450)
[2025-05-04 10:56] LABS: INR 1.26
[2025-05-04 11:00] LABS: ALT/SGPT 45.0 U/L (7.0-40); AST/SGOT 80.0 U/L (<34); CALCIUM LEVEL 10.2 MG/DL (8.3-10.6); CARBON DIOXIDE LEVEL 27.0 MMOL/L (20-31); CHLORIDE LEVEL 84.0 MMOL/L (98-107); CREATININE FOR GFR 1.5 MG/DL (0.55-1.30); GLOMERULAR FILTRATION RATE 35.9 (>39); POTASSIUM SERUM 4.6 MMOL/L (3.5-5.1); SODIUM LEVEL 121.0 MMOL/L (136-145)
[2025-05-04 11:32] LABS: FREE T4 1.18 NG/DL (0.89-1.76); OSMOLALITY SERUM 280.0 MOSM/KG (280-301)
[2025-05-04] MEDS ORDERED: HOME MED LIST COMPLETE! XX SCH (11:50)
[2025-05-04] MEDS: NS (Normal Saline) 0.9% 1,000 ML IV ONE (12:20)
[2025-05-04 12:57] LABS: KETONE, URINE AUTO RFX NEGATIVE (NEGATIVE); LEUKOCYTE ESTERASE UR AUTO RFX NEGATIVE (NEGATIVE); MUCUS, URINE RFX SMALL (NEGATIVE); NITRITE, URINE AUTO RFX NEGATIVE (NEGATIVE); RBC, URINE AUTO RFX 1 /HPF (0-3); SQUAM EPITHELIAL CELL UR AURFX 0 /HPF (0-6); WBC, URINE AUTO RFX 0 /HPF (0-3)
[2025-05-04 14:20] LABS: SODIUM,RANDOM URINE < 10 MMOL/L
[2025-05-04] MEDS: cefTRIAXone SOD 2 GM in DEXTROSE 5% (D5W) ADV/MINI-BAG 50 ML IV SCH (15:20)
[2025-05-04] MEDS: LACTULOSE 20 GM/30 ML SYRUP UDC PO SCH (15:40)
[2025-05-04] MEDS ORDERED: IPRATROPIUM 0.5 MG/ALBUTEROL 2.5 MG INH SOL UD 3 ML NEB PRN (15:50)
[2025-05-04] MEDS ORDERED: ALBUTEROL 90 MCG/ACT 8 GM HFA INHALER INH PRN (15:50)
[2025-05-04] MEDS: PANTOPRAZOLE 40MG VIAL IV SCH (16:00)
[2025-05-04] MEDS: SYMBICORT 80/4.5MCG INHALER 6GM INH SCH (19:57)
[2025-05-04 21:05] VITALS: BP 111/66; TEMP 95.4; O2SAT 98
[2025-05-04 22:13] VITALS: BP 125/65; TEMP 95
[2025-05-04] MEDS: LACTULOSE 20 GM/30 ML SYRUP UDC PR ONE (22:16)
[2025-05-05 00:04] VITALS: BP 107/70; TEMP 97.3; O2SAT 95
[2025-05-05 00:18] VITALS: BP 107/70
[2025-05-05] MEDS: FUROSEMIDE 40 MG/4 ML VIAL IV SCH (00:18)
[2025-05-05 06:23] LABS: PLATELET COUNT, AUTOMATED 111 10^3/uL (150-450)
[2025-05-05 06:36] LABS: INR 1.33
[2025-05-05 06:48] LABS: ALT/SGPT 36.0 U/L (7.0-40); AST/SGOT 61.0 U/L (<34); CALCIUM LEVEL 9.5 MG/DL (8.3-10.6); CARBON DIOXIDE LEVEL 22.0 MMOL/L (20-31); CHLORIDE LEVEL 90.0 MMOL/L (98-107); CREATININE FOR GFR 1.44 MG/DL (0.55-1.30); GLOMERULAR FILTRATION RATE 37.7 (>39); POTASSIUM SERUM 4.0 MMOL/L (3.5-5.1); SODIUM LEVEL 126.0 MMOL/L (136-145)
[2025-05-05 06:49] VITALS: BP 110/72; TEMP 96.5; O2SAT 97
[2025-05-05] MEDS: HEPARIN SOD 5000 UNITS/ML 1 ML VIAL/SYRINGE SQ SCH (08:29)
[2025-05-05] MEDS: SPIRONOLACTONE 50 MG TAB PO SCH (08:30)
[2025-05-05 12:54] LABS: SOURCE, BODY FLUID ASCITES
[2025-05-05 12:55] LABS: APPEARANCE, BODY FLUID HAZY (CLEAR); ASCITES FL COLOR YELLOW (COLORLESS)
[2025-05-05 14:00] VITALS: BP_SYST 110; BP_SYST 116; BP_DIAS 71; BP_DIAS 74; TEMP 96.8; TEMP 97.8; O2SAT 98
[2025-05-05 17:12] LABS: CALCIUM LEVEL 9.4 MG/DL (8.3-10.6); CARBON DIOXIDE LEVEL 21.0 MMOL/L (20-31); CHLORIDE LEVEL 92.0 MMOL/L (98-107); CREATININE FOR GFR 1.46 MG/DL (0.55-1.30); GLOMERULAR FILTRATION RATE 37.1 (>39); POTASSIUM SERUM 4.6 MMOL/L (3.5-5.1); SODIUM LEVEL 128.0 MMOL/L (136-145)
[2025-05-05 19:57] VITALS: BP 117/70; TEMP 95.3; O2SAT 96
[2025-05-05] MEDS ORDERED: METOPROLOL 5 MG/5 ML VIAL IV SCH (20:25)
[2025-05-05 20:41] VITALS: TEMP 97.4
[2025-05-05 21:51] LABS: CALCIUM LEVEL 9.8 MG/DL (8.3-10.6); CARBON DIOXIDE LEVEL 24.0 MMOL/L (20-31); CHLORIDE LEVEL 90.0 MMOL/L (98-107); CREATININE FOR GFR 1.51 MG/DL (0.55-1.30); GLOMERULAR FILTRATION RATE 35.6 (>39); POTASSIUM SERUM 4.1 MMOL/L (3.5-5.1); SODIUM LEVEL 127.0 MMOL/L (136-145)
[2025-05-06] MEDS: ONDANSETRON 4MG/2ML VIAL IV PRN (02:43)
[2025-05-06 05:49] LABS: PLATELET COUNT, AUTOMATED 130 10^3/uL (150-450)
[2025-05-06 05:59] LABS: INR 1.46
[2025-05-06 06:28] LABS: ALT/SGPT 30.0 U/L (7.0-40); AST/SGOT 55.0 U/L (<34); CALCIUM LEVEL 9.5 MG/DL (8.3-10.6); CARBON DIOXIDE LEVEL 21.0 MMOL/L (20-31); CHLORIDE LEVEL 90.0 MMOL/L (98-107); CREATININE FOR GFR 1.53 MG/DL (0.55-1.30); GLOMERULAR FILTRATION RATE 35.1 (>39); POTASSIUM SERUM 4.0 MMOL/L (3.5-5.1); SODIUM LEVEL 125.0 MMOL/L (136-145)
[2025-05-06 06:44] VITALS: BP 113/70; TEMP 96.8; O2SAT 95
[2025-05-06] MEDS: PANTOPRAZOLE 40MG TAB PO SCH (09:00)
[2025-05-06] MEDS: SODIUM CHLORIDE 1 GM TAB PO SCH (09:08)
[2025-05-06 10:00] VITALS: BP 106/65; TEMP 95.4; O2SAT 92
[2025-05-06] MEDS ORDERED: HYOSCYAMINE SULFATE 0.125 MG SUBL TABLET PO PRN (12:20)
[2025-05-06] MEDS ORDERED: ATROPINE SULFATE 1% OPHTH SOLN 2 ML BTL SL PRN (12:20)
[2025-05-06] MEDS ORDERED: LORazepam 1 MG TAB PO PRN (12:20)
[2025-05-06] MEDS ORDERED: ACETAMINOPHEN 650 MG SUPP PR PRN (12:20)
[2025-05-06] MEDS ORDERED: BISACODYL 10 MG SUPP PR PRN (12:20)
[2025-05-06] MEDS ORDERED: ONDANSETRON 4MG ORAL DISINTEGRATING TAB PO PRN (12:20)
[2025-05-06 14:00] VITALS: BP 93/58; TEMP 96; O2SAT 93
[2025-05-06] MEDS: MORPHINE 10 MG/0.5 ML ORAL CONCENTRATE SOLUTION U/D SL PRN (16:43)
== END 2025-05-07 02:03 | disposition expired | DRG 432 ==
LOC: EDBD 08:23 → M ED 08:23 → M ED INP 14:03 → M MS5PR 16:55
PROVIDERS: ADMIT Student in an Organized Health Care Education/Training Program; ATTEND Internal Medicine Nephrology
PROC: 0W9G3ZZ Drainage of Peritoneal Cavity, Percutaneous Approach (ICD-10-PCS; principal; 2025-05-05 11:00)
DX: K74.60 Unspecified cirrhosis of liver (principal); G92.8 Other toxic encephalopathy; J18.9 Pneumonia, unspecified organism; G93.41 Metabolic encephalopathy; K76.7 Hepatorenal syndrome; K83.1 Obstruction of bile duct; R18.8 Other ascites; E87.1 Hypo-osmolality and hyponatremia; N17.9 Acute kidney failure, unspecified; J90 Pleural effusion, not elsewhere classified; E72.20 Disorder of urea cycle metabolism, unspecified; D68.32 Hemorrhagic disorder due to extrinsic circulating anticoagulants; J94.8 Other specified pleural conditions; J44.9 Chronic obstructive pulmonary disease, unspecified; I10 Essential (primary) hypertension; I95.1 Orthostatic hypotension; K75.81 Nonalcoholic steatohepatitis (NASH); E83.52 Hypercalcemia; I95.89 Other hypotension; F17.200 Nicotine dependence, unspecified, uncomplicated; I48.0 Paroxysmal atrial fibrillation; D69.6 Thrombocytopenia, unspecified; R53.1 Weakness; K76.82 Hepatic encephalopathy; E87.70 Fluid overload, unspecified; M81.0 Age-related osteoporosis without current pathological fracture; Z88.2 Allergy status to sulfonamides; Z88.1 Allergy status to other antibiotic agents; Z88.6 Allergy status to analgesic agent; Z88.8 Allergy status to other drugs, medicaments and biological substances; Z91.048 Other nonmedicinal substance allergy status